=== PATIENT | male | born 1990 | race Caucasian/White ===

== ENCOUNTER 2016-08-14 11:44 | Emergency (ER) | payer SELFPAY ==
[~2016-08-14] VITALS: Ht 177.8 cm; Wt 83.8 kg
[2016-08-14 11:47] VITALS: Ht 177.8 cm; Wt 83.8 kg
[2016-08-14] MEDS ORDERED: HYDROCODONE/APAP (10/325) TAB PO ONE (13:30)
[2016-08-14] MEDS ORDERED: IBUPROFEN 800 MG TAB PO ONE (13:30)
--- NOTE | 2016-08-14 14:45 | RADRPT ---
PROCEDURE: US Scrotum. CLINICAL INDICATION: Pain and swelling TECHNIQUE: Multiple sonographic images of the scrotal region were obtained utilizing a linear arra y transducer with grayscale and color-flow and a Doppler imaging. The images were reviewed on a high -resolution PACS workstation. COMPARISON: No prior studies are available for comparison. FINDINGS: The right testicle is well visualized and has a normal echotexture. No focal areas of abnormal echog enicity are visualized. The right testicle measures measures 3.9 x 2.5 x 3.1 cm. There is normal col or-flow. There is a 1.2 cm simple cyst in the right epididymis. The left testicle is well visualized and has a normal echotexture. No focal areas abnormal echogenic ity are visualized. The left testicle measures measures 3.7 x 3.3 cm. There is increased color-flow. The left epididymis is visualized and is unremarkable in appearance. There is increased color-flow. The scrotal wall is unremarkable. No swelling or edema is seen. No other incidental abnormality is identified. RPTAT: AA IMPRESSION: Increased flow in the left testicle and epididymis, consistent with left epididymal orchitis. Simple cyst in the right epididymis. .Amos Ramirez MD, MD Date Time Electronically viewed and signed by .Amos Ramirez MD, on 08/14/2016 14:45 .S/
[2016-08-14] MEDS ORDERED: CIPR500T4 PO (15:03)
[2016-08-14] MEDS ORDERED: HYDR-902 PO (15:03)
--- NOTE | 2016-08-14 15:05 | ERD ---
ER Documentation Chief Complaint Date/Time DATE: 08/14/16 TIME: 15:04 Chief Complaint pt bib family with c/o left sided testicle pain x 4 days (not visualized ) HPI 26-year-old male complains of left testicular swelling and pain 4 days after running. Patient has no penile discharge no fever no back pain no hematuria. Pain is located in the left testicle only with some slight erythema no trauma. No radiation of pain ROS All systems reviewed and are negative except as per history of present illness. Medications Home Meds Active Scripts Ciprofloxacin Hcl* (Ciprofloxacin Hcl*) 500 Mg Tablet, 500 MG PO BID for 21 Days , TAB Prov:LEKKOS,APOSTOLOS A. DO 08/14/16 Hydrocodone/Acetaminophen (Myton 10-325 Tablet) 1 Each Tablet, 1 TAB PO Q6H Y for PAIN, #20 TAB Prov:LEKKOS,APOSTOLOS A. DO 08/14/16 Allergies Allergies: Coded Allergies: No Known Allergy (Unverified , 08/14/16) PMhx/Soc Medical and Surgical Hx: pt denies Medical Hx, pt denies Surgical Hx History of Surgery: No Anesthesia Reaction: No Hx Neurological Disorder: No Hx Respiratory Disorders: No Hx Cardiac Disorders: No Hx Psychiatric Problems: No Hx Miscellaneous Medical Probl: No Hx Alcohol Use: Yes (OOC) Hx Substance Use: No Hx Tobacco Use: Yes Smoking Status: Never smoker FmHx Family History: No coronary disease Physical Exam Vitals Vital Signs Date Time Temp Pulse Resp B/P Pulse Ox O2 Delivery O2 Flow Rate FiO2 08/14/16 11:47 98.3 64 18 136/79 99 Physical Exam Const: Well-developed, well-nourished Head: Atraumatic, normocephalic Eyes: Normal Conjunctiva, PERRLA, EOMI, normal sclera, no nystagmus ENT: Normal External Ears, Nose and Mouth, moist mucus membranes. Neck: Full range of motion. No meningismus, no lymphadenopathy. Resp: Clear to auscultation bilaterally, no wheezing, rhonchi, rales Cardio: Regular rate and rhythm, no murmurs, S1 S2 present Abd: Soft, non tender x 4, non distended. Normal bowel sounds, no guarding or rebound, no pulsitile abdominal masses or bruits, bilateral cremasteric reflex left testicle is swollen with swollen epididymis tender epididymis Skin: No petechiae or rashes, no ecchymosis , no maculopapular rash Back: No midline or flank tenderness Ext: No cyanosis, or edema, FROM x 4, normal inspection, neurovascularly intact x 4 Neur: Awake and alert, STR 5/5 x 4, sensation intact x 4, no focal findings, cerebellum intact Psych: Normal Mood and Affect Results 24 hrs Current Medications Medications (Trade) Dose Ordered Sig/Gio Route PRN Reason Start Time Stop Time Status Last Admin Dose Admin Acetaminophen/ Hydrocodone Bitart (Myton (10)) 1 tab ONCE ONCE PO 08/14/16 13:30 08/14/16 13:31 DC 08/14/16 13:33 Ibuprofen (Motrin) 800 mg ONCE ONCE PO 08/14/16 13:30 08/14/16 13:31 DC 08/14/16 13:33 Procedures/MDM PROCEDURE: US Scrotum. CLINICAL INDICATION: Pain and swelling TECHNIQUE: Multiple sonographic images of the scrotal region were obtained utilizing a linear array transducer with grayscale and color-flow and a Doppler imaging. The images were reviewed on a high-resolution PACS workstation. COMPARISON: No prior studies are available for comparison. FINDINGS: The right testicle is well visualized and has a normal echotexture. No focal areas of abnormal echogenicity are visualized. The right testicle measures measures 3.9 x 2.5 x 3.1 cm. There is normal color-flow. There is a 1.2 cm simple cyst in the right epididymis. The left testicle is well visualized and has a normal echotexture. No focal areas abnormal echogenicity are visualized. The left testicle measures measures 3.7 x 3.3 cm. There is increased color-flow. The left epididymis is visualized and is unremarkable in appearance. There is increased color-flow. The scrotal wall is unremarkable. No swelling or edema is seen. No other incidental abnormality is identified. RPTAT: AA IMPRESSION: Increased flow in the left testicle and epididymis, consistent with left epididymal orchitis. Simple cyst in the right epididymis. .Amos Ramirez MD, MD Date Time Electronically viewed and signed by .Amos Ramirez MD, on 08/14/2016 14: 45 .S/ CC: THANIA CHENG DO Treat with Cipro and hydrocodone Departure Diagnosis: Primary Impression: Epididymitis Condition: Stable Patient Instructions: Epididymitis Referrals: KANIKA PRYOR MD, APOSTOLOS A. DO Aug 14, 2016 15:05
[2016-08-14 15:10] VITALS: BP 129/77; PULSE 78; RESP 18; TEMP 98.3
== END 2016-08-14 15:20 | disposition home or self-care (01) ==
LOC: FTE 11:44
DX: N45.1 Epididymitis (principal)
CPT/HCPCS: 76870